=== PATIENT | female | born 1955 | race Hispanic/Latino ===

== ENCOUNTER → 2025-11-22 | Outpatient (CLI) | payer MEDICARE ==
[~2025-11-22] MED LIST: GADOTERATE MEGLUMINE 10 MMOL/20 ML VIAL IV ONE
--- NOTE | 2025-11-28 11:32 | HMCIMG ---
INDICATION: Dense breasts, tenderness in left breast TECHNIQUE Precontrast axial T1 and axial T2 fat saturation sequences were obtained. Dynamic postcontrast axial imaging were obtained. Subtraction images and MIP reconstructions were generated. IV Contrast: 20 mL Clariscan COMPARISON None FINDINGS Amount of fibroglandular tissue: Heterogeneous fibroglandular tissue. Background parenchymal enhancement: Right breast: No suspicious mass or non-mass enhancement. Left breast: No suspicious mass or non-mass enhancement. Lymph nodes: Unremarkable. Other tissues: Unremarkable. IMPRESSION No MRI evidence of malignancy. BI-RADS 1: negative. Recommendation: Routine annual screening mammography. /[place]
== END | disposition home or self-care (01) ==
LOC: RAH 13:34
PROVIDERS: ATTEND Student in an Organized Health Care Education/Training Program
DX: R92.322 Mammographic fibroglandular density, left breast (principal); N63.20 Unspecified lump in the left breast, unspecified quadrant
CPT/HCPCS: 77049; A9575